=== PATIENT | female | born 1945 | race Caucasian/White ===

== ENCOUNTER 2021-08-29 16:08 | Inpatient (IN) | payer MEDICARE ==
[2021-08-29] VITALS (9 sets, daily range): BP systolic 102–117; BP diastolic 57–75; PULSE 69–101; TEMP 97–98.2
[~2021-08-29] VITALS: Ht 160 cm; Wt 114.1 kg
[~2021-08-29 16:08] MED LIST: CARDIZEM 30MG T30 MG PO; CARDIZEM 60MG T60 MG PO; CYCLOBENZAPRINE10 MG PO; LANOXIN 0.25M0.25 MG PO; LASIX 40MG TABL40 MG PO; LISINOPRIL10 MG PO; LOFIBRA160 MG PO; METOPROLOL SUCC25 MG PO; MICRO-K 10 EXT10 MEQ PO; PRILOTC PO; PROVENTIL0.09 MG/A1 IH; TRICOR145 MG PO; ULTRAM50 MG PO; WARFARIN SOD5 MG PO; ZOCOR 40MG40 MG PO; ZOCOR40 MG PO
[2021-08-29] MEDS ORDERED: LOPRESSOR 225 MG/TAB PO (17:34)
[2021-08-29] MEDS ORDERED: GLUCOPHAGE500 MG/TAB PO (17:34)
[2021-08-29] MEDS ORDERED: XARELTO20 MG PO (17:36)
[2021-08-29] MEDS ORDERED: VITAMIN B12 681 TAB PO (17:36)
--- NOTE | 2021-08-29 19:14 | NUR ---
Care of pt assumed @ 1820. Pt waiting for surgery. She has been up and down off commode with assist since I assume care. Pt very uncomfortable and reports a sore bottom. She has 1 medium BM. She also reports nausea from not eating. Pt encouraged and provided support as needed. Call light in reach.
[2021-08-29] MEDS ORDERED: PYRIDIUM 100MG100 MG PO (19:35)
[2021-08-29] MEDS ORDERED: NORCO 325 MG-51 TAB PO (19:35)
[2021-08-30] VITALS (9 sets, daily range): BP systolic 101–123; BP diastolic 52–74; PULSE 48–120; TEMP 97.4–98.4
--- NOTE | 2021-08-30 03:07 | NUR ---
PATIENT UP TO ROOM 349 AT 2100. ORIENTED BUT DROWSY. STARTED ON 6 L O2 VIA OXYMASK BUT HAS SINCE BEEN WEANED DOWN TO 3 L. GOT UP TO BEDSIDE COMMODE WITH STANDBY ASSIST AND HAD RED TINGED URINE. C/O MODERATE PAIN TO ABD AND SCHEDULED TYLENOL GIVEN. C/O NAUSEA AND PRN ZOFRAN GIVEN. X3 ULCERS NOTED IN ABD SKIN FOLDS ON THE R SIDE AND ABD PAD PLACED BETWEEN FOLDS.
--- NOTE | 2021-08-30 09:31 | NUR ---
NOTIFIED GREGORY WILDE FOR UROLOGY OF PT DESATURATION ON RA. NOTIFIED ASHUTOSH WILDE OF CONSULT NEW ORDERS RECIEVED.
--- NOTE | 2021-08-30 09:34 | NUR ---
HOSPITALIST CONSULTED FOR INABLITY TO MAINTAIN O2 SATS. NOTIFIED ASHUTOSH WILDE.
[2021-08-30 10:37] LABS: HEMOGLOBIN 11.3 g/dl (12.5-16.0); MEAN CELL VOLUME 96 fl (80.0-100.0); MEAN CORPUSCULAR HEMOGLOBIN 30 pg (27-31); MEAN CORPUSCULAR HGB CONC 31 g/dl (33.0-37.0); MEAN PLATELET VOLUME 9.3 fl (7.4-10.4); PLATELET COUNT 308 K/mm3 (130-400); REDCELL DISTRIBUTION WIDTH-CV 14.6 % (11.5-14.5)
--- NOTE | 2021-08-30 10:42 | NUR ---
Initial visit; Patient thanked Heavy Equipment Supervisor for looking in on her, visiting and offering God's blessings.
[2021-08-30 10:52] LABS: ALANINE AMINOTRANSFERASE 7 U/L (0-55); ALBUMIN 3.1 gm/dL (3.4-4.8); ALKALINE PHOSPHATASE 106 U/L (40-150); ANION GAP 11 mmol/L (7-16); AST,SGOT 15 U/L (5-34); BILIRUBIN,TOTAL 0.5 mg/dL (0.2-1.2); BLOOD UREA NITROGEN 29 mg/dL (10-20); CALCIUM 8.6 mg/dL (8.4-10.2); CARBON DIOXIDE 28 mmol/L (23-31); CHLORIDE 102 mmol/L (98-107); CREATININE, serum 1.52 mg/dL (0.57-1.11); GLUCOSE 159 mg/dL (70-99); POTASSIUM 5.4 mmol/L (3.5-4.5); SODIUM 141 mmol/L (136-145); TOTAL PROTEIN 6.6 gm/dL (6.2-8.1)
[2021-08-30 10:58] LABS: TROPONIN-I < 0.010 ng/mL (0.00-0.033)
--- NOTE | 2021-08-30 11:01 | NUR ---
UPDATED ASHUTOSH WILDE ON PT'S LAB RESULTS.
[2021-08-30 11:08] LABS: HEMATOCRIT 36.3 % (37.0-47.0)
[2021-08-30 11:25] LABS: BAND 8 % (0-10); LYMPHOCYTE 2 % (20.0-51.0); NEUTROPHILS 85 % (42.0-75.2); PLATELET ESTIMATE NORMAL (NORMAL)
[2021-08-30 13:49] LABS: MUCOUS Present (NOT PRESENT); PH 5 (5-8); URINE APPEARANCE Cloudy (CLEAR/HAZY); URINE BACTERIA None Seen /hpf (NONE SEEN); URINE BILIRUBIN Negative (NEGATIVE); URINE BLOOD 3+ (NEGATIVE); URINE COLOR Yellow (YELLOW); URINE GLUCOSE Negative (NEGATIVE); URINE KETONE Negative (NEGATIVE); URINE LEUKOCYTE ESTERASE Trace (NEGATIVE); URINE NITRATE Negative (NEGATIVE); URINE PROTEIN(semi-quant) 1+ (NEGATIVE); URINE RBC >50 /hpf (0-2); URINE UROBILINOGEN Negative (NEGATIVE)
[2021-08-30 14:27] LABS: COLLECTION METHOD CLEAN CATCH
--- NOTE | 2021-08-30 14:46 | NUR ---
grounds worker met with patient to complete intake. Patient lives at home alone in [place], but has been receiving home health services [facility] for PT and OT. Patient reports to being mostly independent but does get some help from home health. Patient utilizes a walker to assist with mobility. No oxygen needs at home, however since admit she has needed oxygen, currently on 5L. When not on oxygen, she destat's into the 60's.PCP is Dr. Stevens and she utilizes [facility] for medications. Patient states she does have a DPOA-HC established and that her PCP's office should have a copy. Phone call made to Dr. Stevens' office and copy of the patient's DPOA-HC requested to be faxed to the surgial unit. Fax number provided to medical records at . Discharge plan: Home pending PT/OT rec's; will most likely need oxygen established
--- NOTE | 2021-08-30 15:43 | NUR ---
MED LIST OBTAINED FROM [facility]. FORWARDED TO ASHUTOSH WILDE.
[2021-08-30] MEDS ORDERED: LIPITOR 80MG80 MG PO (15:45)
[2021-08-30] MEDS ORDERED: DIGITEK0.125 MG PO (15:47)
[2021-08-30] MEDS ORDERED: FLOVENT 110MCG7.9 GM IH (15:48)
[2021-08-30] MEDS ORDERED: LASIX 40MG TABL40 MG PO (15:49)
[2021-08-30] MEDS ORDERED: COZAAR 50MG50 MG/TAB PO (15:50)
[2021-08-30] MEDS ORDERED: NYAMYC100000 U/G TP (15:51)
[2021-08-30] MEDS ORDERED: VITAMIN D31000 I1 PO (15:53)
--- NOTE | 2021-08-30 16:50 | NUR ---
DR. ZHOU IN TO SEE PATIENT THIS PM.
--- NOTE | 2021-08-30 19:52 | NUR ---
Pt very uncooperative and sleepy. Pt encouraged to leave the mask on for a couple minutes to get the medicine. Not sure if pt was understanding. She would continuously moan but not speak.
--- NOTE | 2021-08-30 20:30 | NUR ---
PATIENT IS RESTING IN BED.PATIENT IS ON SUPPLEMENTAL OXYGEN 4L.PATIENT REPORTS NAUSEA MEDICATION ADMINISTERED PER EMAR.PATIENT DENIES PAIN.PATIENT IS A ONE ASSIST TO THE BEDSIDE COMMODE.SAFETY MEASURES IN PLACE.NO OTHER NEEDS AT THIS TIME.
[2021-08-31] VITALS (9 sets, daily range): BP systolic 89–135; BP diastolic 42–80; PULSE 78–99; TEMP 97.3–97.9
--- NOTE | 2021-08-31 05:47 | NUR ---
PATIENT SLEPT FOR THE MOST PART OF THE NIGHT.PATIENT DENIES PAIN.PATIENT TAKES OFF THE OXYGEN MASK ON AND OFF WHEN SLEEPING.OXYGEN SATS ABOVE 90S.SAFETY MEASURES IN PLACE.NO OTHER NEEDS AT THIS TIME.
--- NOTE | 2021-08-31 07:00 | NUR ---
Report received from HUNTER Franco. Pt in bed resting, 02 found off and pt states she "just had some water". Replaced and will continue ot monitor.
[2021-08-31 09:18] LABS: BASO % 0.2 % (0.0-2.0); GRAN # 10.5 K/mm3 (1.4-6.5); GRAN % 84.2 % (42.2-75.2); HEMOGLOBIN 10.9 g/dl (12.5-16.0); LYMPH # 1.1 K/mm3 (1.2-3.4); MEAN CELL VOLUME 98 fl (80.0-100.0); MEAN CORPUSCULAR HEMOGLOBIN 29 pg (27-31); MEAN CORPUSCULAR HGB CONC 30 g/dl (33.0-37.0); MEAN PLATELET VOLUME 9.3 fl (7.4-10.4); MONO # 0.7 K/mm3 (0.1-0.6); MONO % 5.7 % (1.7-9.3); PLATELET COUNT 289 K/mm3 (130-400); RED BLOOD COUNT 3.71 M/mm3 (4.10-5.30); REDCELL DISTRIBUTION WIDTH-CV 14.6 % (11.5-14.5)
[2021-08-31 09:21] LABS: HEMATOCRIT 36.4 % (37.0-47.0)
--- NOTE | 2021-08-31 09:25 | NUR ---
Follow-up visit; Patient is doing better she thinks and thanked Glass Blowing Instructor for looking in on her and offering God's blessings.
--- NOTE | 2021-08-31 09:30 | NUR ---
Assessment charted. Pt is alert and partially oriented to date and self but thought she was [place]. Pt has pannus that has wounds in folds on R side. placed inter dry in folds. Also found large open are on labia that pt states makes it hurt when seh urinates. tried to bladder scan and unable to get any urine. Pt has 02 at 5L NC. Legs are swollen, per pt this is standard.
[2021-08-31 09:39] LABS: CALCIUM 8.2 mg/dL (8.4-10.2); CREATININE, serum 2.15 mg/dL (0.57-1.11); POTASSIUM 5.2 mmol/L (3.5-4.5)
[2021-08-31 11:51] LABS: MUCOUS Present (NOT PRESENT); PH 5 (5-8); URINE APPEARANCE Hazy (CLEAR/HAZY); URINE BACTERIA None Seen /hpf (NONE SEEN); URINE BILIRUBIN Negative (NEGATIVE); URINE BLOOD 3+ (NEGATIVE); URINE COLOR Yellow (YELLOW); URINE GLUCOSE Negative (NEGATIVE); URINE KETONE Negative (NEGATIVE); URINE LEUKOCYTE ESTERASE Negative (NEGATIVE); URINE NITRATE Negative (NEGATIVE); URINE PROTEIN(semi-quant) Negative (NEGATIVE); URINE RBC >50 /hpf (0-2); URINE UROBILINOGEN Negative (NEGATIVE)
[2021-08-31 12:50] LABS: COLLECTION METHOD CLEAN CATCH
--- NOTE | 2021-08-31 14:15 | NUR ---
Palliative care nurse met with pt at bedside. Pt seems to be clear in what she reports but when questions are asked in different ways, the answers are often different. Pt's melissa has been setting up her meds this last week as pt has not been taking her meds independently--and still has not responded to phone reminders to take her meds. 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 These still exist. Melissa Cortes reports that her confusion has increased over the last two months, she spends a lot of time talking about life in 1969-. Shital helps with housecleaning, picking up groceries, setting up meds, has arranged for her to have shower help 3x/wk, and calls her every evening to make sure she is ok. She and melissa Chaudhary, are looking into assisted living in [place]. I encouraged her to talk with Lorenza CAMPO about options that might be available to them and Shital seemed very pleased to be able to have that assistance if possible. During our conversation, pt was asked what her wishes would be if her heart were to stop or she would stop breathing. After much thought, she stated, "I am almost 76 years old--if it is my time, let me peacefully". Elba WILDE was advised and order was entered for DNR. I advised Shital of this during our call.
[2021-08-31 14:52] LABS: CALCIUM 8.5 mg/dL (8.4-10.2); CREATININE, serum 2.36 mg/dL (0.57-1.11); POTASSIUM 5.2 mmol/L (3.5-4.5)
--- NOTE | 2021-08-31 15:14 | NUR ---
[facility] was contacted by patient's niece, Shital to discuss discharge planning. Shital is in agreement that patient would benefit from SNF and would like referrals sent to local SNFs. JAHAIRA faxed referrals to [facility] and [facility]. Shital advised they are looking into [facility] for patient.
--- NOTE | 2021-08-31 16:11 | NUR ---
Niece here to visit patient and she is taking patients valuables home wiht her to pay patient's bills per patient's request.
--- NOTE | 2021-08-31 18:25 | NUR ---
Pt has rested off and on this afternoon. Resting in bed, sosa drainin clear yellow urine. Denies needs, PRN pain meds given per request. Pt on 6L O2 now. Will give report to nightshift nurse who will resume care.
--- NOTE | 2021-08-31 19:39 | NUR ---
Pt aggressive and swinging her arms stating "leave me alone." I encouraged pt to take tx, I explained that this was medicine ordered by her Dr and that it would help her. I asked if she would please just let me put the mask on her for 5 minutes and then I would leave her alone as requested. I attempted to place mask since she would not answer me and she proceeded to swing her arms even harder than before and yelled louder, "LEAVE ME ALONE." Med scanned because med was started but pt would not allow me to leave tx on her face. Completion of tx REFUSED by pt at this time. RN notified.
[2021-09-01] VITALS (8 sets, daily range): BP systolic 100–146; BP diastolic 50–79; PULSE 88–110; TEMP 97.4–98.8
--- NOTE | 2021-09-01 05:49 | NUR ---
pt on 6L O2 per mask, c/o pain x2, oxycodone given. turned q2, sosa patent and secure with bloody urine output. confused @times, unable to complete sentences or just mumbles, then other times speaks clearly. refused RT tx @HS then requested one early this am, RT will do @scheduled time of 0700. fluid restriction enfored. remains in afib, HR up to 120-130's @times, 80s-90s now.
[2021-09-01 06:34] LABS: BASO % 0.1 % (0.0-2.0); EOS % 0.1 % (0.0-4.0); GRAN # 12.5 K/mm3 (1.4-6.5); GRAN % 86.5 % (42.2-75.2); HEMATOCRIT 37.8 % (37.0-47.0); LYMPH # 0.8 K/mm3 (1.2-3.4); LYMPH % 5.3 % (20.0-51.0); MEAN CELL VOLUME 102 fl (80.0-100.0); MEAN CORPUSCULAR HEMOGLOBIN 30 pg (27-31); MEAN CORPUSCULAR HGB CONC 29 g/dl (33.0-37.0); MEAN PLATELET VOLUME 9.9 fl (7.4-10.4); MONO % 6.7 % (1.7-9.3); PLATELET COUNT 290 K/mm3 (130-400); REDCELL DISTRIBUTION WIDTH-CV 14.5 % (11.5-14.5)
[2021-09-01 06:47] LABS: CALCIUM 8.1 mg/dL (8.4-10.2); CREATININE, serum 2.4 mg/dL (0.57-1.11); POTASSIUM 5.7 mmol/L (3.5-4.5)
[2021-09-01 09:33] LABS: ARTERIAL BLD GAS O2 SATURATION 96.4 % (92-100); ARTERIAL BLD GAS TCO2 CT 39.6; ARTERIAL BLOOD GAS BASE EXCESS 4.7 (-2-2); ARTERIAL BLOOD GAS HCO3 36.4 meq/L (22-26); ARTERIAL BLOOD GAS PO2 86.3 mmHg (80-100)
[2021-09-01 09:35] LABS: ARTERIAL BLOOD GAS PCO2 103.3 mmHg (35-45); ARTERIAL BLOOD GAS pH 7.17 (7.35-7.45)
[2021-09-01 12:20] LABS: ARTERIAL BLD GAS O2 SATURATION 98.2 % (92-100); ARTERIAL BLD GAS TCO2 CT 39.1; ARTERIAL BLOOD GAS BASE EXCESS 5.9 (-2-2); ARTERIAL BLOOD GAS HCO3 36.3 meq/L (22-26); ARTERIAL BLOOD GAS PCO2 90.1 mmHg (35-45); ARTERIAL BLOOD GAS PO2 107.9 mmHg (80-100); ARTERIAL BLOOD GAS pH 7.22 (7.35-7.45)
--- NOTE | 2021-09-01 15:28 | NUR ---
1459- ASSESSEMENT COMPLETED. PT IS LETHARGIC, WILL RESPOND TO HER NAME ET FOLLOW VERBAL COMMANDS BUT WILL NOT SPEAK WORDS, JUST GRUNTS ET MOANS. PT'S RIGHT EYE APPEARS TO BE DROOPING, PULPILS PERRLA ET HAND APPLICATION SUPPORT ANALYST EQUAL BUT WEAK. PT MOVES BILATERAL LEGS ON BED. GROSS HEMATURIA NOTED IN PT'S PANDA BAG, BUT APPEARS TO CONTINUE TO DRAIN. PT'S GRUNTS ET BREATHING APPEARS UNLABORED ET AT A NORMAL RATE. OXYGEN ON @ 6L NC. OXYGEN SATS ARE 92%. DR. RABAGO NOTIFIED OF PT CONDITION. 1245- DR. URIOSTEGUI NOTIFIED OF HEMATURIA. ORDERS TO CONTIUE TO HOLD XARELTO. 1000- PT BACK TO ROOM FROM CT. PT YELLED ET BECAME VERY AGITATED WHEN MOVING FROM THE BED TO CT CART. 4 ASSIST USED TO TRANSFER PT WITH SLIDE BOARD.
--- NOTE | 2021-09-01 16:17 | NUR ---
1030- RT REPORTS CRITICAL HIGH CO2. DR. RABAGO NOTIFIED. PT PLACED ON BIPAP @ THIS TIME. PT CRIES AFTER RETURNING FROM CT, STATES THAT SHE'S A BIG BABY ET THAT SHE'S SORRY. PT REASSURED. PT'S SPEECH IS SOMEWHAT GARBLED ET SLURRED @ TIMES, STATES THAT SHE IS HAVING PAIN IN HER BACK WHEN ASKED. NEW ORDER RECEIVED FOR LIDOCAINE PATCH. PATCH IS PLACED ON PT'S LOWER BACK. PT IS REPSOTIONED Q 2HRS, IS ON HER LEFT SIDE @ THIS TIME. 1230- PT IS CALM @ THIS TIME BUT STATES THAT SHE WANTS TO TAKE BIPAP MASK OFF. EDUCATED PT ON USE ET IMPORTANCE OF LEAVING BIPAP ON, PT'S RECALL IS LIMITED. PT STATES THAT HER BACK IS STILL HURTING ET GROANS. PT IS GIVEN BED BATH ET DOES NOT TOLERATE REPOSITIONING WELL, YELLS WITH MOVEMENT, LINENS CHANGED. PT STATES THAT SHE WOULD LIKE A DRINK, IS GIVEN ICE WATER THROUGH A STRAW. HOB ELEVATED 45 DEGREES. PT APPEARS TO SWALLOW EASILY. DR. RABAGO NOTIFIED OF PT'S IMPROVEMENT, OKAYED TO GIVE ORAL MORNING MEDS ET PAIN MEDICATION. PT SWALLOWS PILLS EASILY BUT APPEARS TO GAG BRIEFLY AFTERWARDS, STATES THAT SHE CAN USUALLY TAKE MULTIPLE PILLS @ SAME TIME WITHOUT PROBLEMS. BIPAP MASK PLACED BACK ON PT ET IS ALLOWED TO REST @ THIS TIME.
--- NOTE | 2021-09-01 16:40 | NUR ---
PT APPEARS TO BE SLEEPING, AWAKENS EASILY TO NAME. BIPAP IN PLACE. PT CONTINUES TO BE DROWSY AFTER BEING AWAKENED, ATTEMPTS TO DRINK WATER THROUGH STRAW BUT CANNOT. PT'S MOUTH ET LIPS APPEAR VERY DRY, ORAL CARE COMPLETED. PT IS REPOSITIONED ONTO LEFT SIDE FROM RIGHT SIDE WITH 2 ASSIST. PT MOANS ET YELLS OUT WITH REPOSITIONING. PT WILL NOT TALK BUT ANSWERS YES/NO QUESTIONS BY NODDING HER HEAD. CALL LIGHT WITHIN REACH. BED ALARM ON.
[2021-09-01 17:18] LABS: ARTERIAL BLD GAS O2 SATURATION 97.6 % (92-100); ARTERIAL BLD GAS TCO2 CT 37.7; ARTERIAL BLOOD GAS BASE EXCESS 4.9 (-2-2); ARTERIAL BLOOD GAS PCO2 86.4 mmHg (35-45); ARTERIAL BLOOD GAS PO2 98.6 mmHg (80-100); ARTERIAL BLOOD GAS pH 7.23 (7.35-7.45)
--- NOTE | 2021-09-01 17:34 | NUR ---
PT CONTINUES TO BE DROWSY, UNABLE TO SUCTION STRAW TO TAKE A DRINK OF WATER ET REFUSES TO TAKE DRINK FROM THE SIDE OF THE GLASS. TYLENOL PO WASTED ET NOT GIVEN R/T PT'S DIFFICULTY IN DRINKING. PT'S SPEECH IS SLURRED. URINE IN PANDA BAG IS DARK SHINE WITH SMALL CLOTS SEEN, CONTINUES TO DRAIN. BIPAP IN PLACE.
--- NOTE | 2021-09-01 17:40 | NUR ---
PT'S BIPAP DECREASED TO 40% FIO2 PER RT.
--- NOTE | 2021-09-01 19:02 | NUR ---
BIPAP SETTINGS CHANGED ORDERED AT THIS TIME, TOLERATING WELL. TX GIVEN INLINE WITH BIPAP.
[2021-09-01 21:13] LABS: ARTERIAL BLD GAS O2 SATURATION 95.6 % (92-100); ARTERIAL BLD GAS TCO2 CT 34.7; ARTERIAL BLOOD GAS BASE EXCESS 3.8 (-2-2); ARTERIAL BLOOD GAS HCO3 32.5 meq/L (22-26); ARTERIAL BLOOD GAS PO2 83.2 mmHg (80-100); ARTERIAL BLOOD GAS pH 7.27 (7.35-7.45)
[2021-09-01 21:16] LABS: ARTERIAL BLOOD GAS PCO2 72.9 mmHg (35-45)
[2021-09-02] VITALS (7 sets, daily range): BP systolic 98–149; BP diastolic 55–85; PULSE 86–107; TEMP 97.6–98.8
[2021-09-02 05:45] LABS: ARTERIAL BLD GAS O2 SATURATION 97.4 % (92-100); ARTERIAL BLD GAS TCO2 CT 34.8; ARTERIAL BLOOD GAS HCO3 32.8 meq/L (22-26); ARTERIAL BLOOD GAS PO2 98.5 mmHg (80-100); ARTERIAL BLOOD GAS pH 7.32 (7.35-7.45)
[2021-09-02 05:47] LABS: ARTERIAL BLOOD GAS PCO2 65.4 mmHg (35-45)
[2021-09-02 07:07] LABS: HEMOGLOBIN 10.7 g/dl (12.5-16.0); MEAN CELL VOLUME 99 fl (80.0-100.0); MEAN CORPUSCULAR HEMOGLOBIN 30 pg (27-31); MEAN CORPUSCULAR HGB CONC 30 g/dl (33.0-37.0); MEAN PLATELET VOLUME 10.1 fl (7.4-10.4); PLATELET COUNT 233 K/mm3 (130-400); RED BLOOD COUNT 3.58 M/mm3 (4.10-5.30); REDCELL DISTRIBUTION WIDTH-CV 14.3 % (11.5-14.5)
--- NOTE | 2021-09-02 07:09 | NUR ---
Kpad started for c/o neck discomfort, Kept bipap on all noc, am gas much improved. oxycodone given for pain x2. sosa with 650cc out, remains bloody and hazy.
[2021-09-02 07:22] LABS: HEMATOCRIT 35.6 % (37.0-47.0)
[2021-09-02 07:31] LABS: ALBUMIN 3.2 gm/dL (3.4-4.8); ALKALINE PHOSPHATASE 85 U/L (40-150); AST,SGOT 13 U/L (5-34); BILIRUBIN,TOTAL 0.6 mg/dL (0.2-1.2); BLOOD UREA NITROGEN 50 mg/dL (10-20); C-REACTIVE PROTEIN 2.72 mg/dL (0.00-0.50); CALCIUM 8.8 mg/dL (8.4-10.2); CARBON DIOXIDE 33 mmol/L (23-31); CHLORIDE 99 mmol/L (98-107); CREATININE, serum 2.04 mg/dL (0.57-1.11); GLUCOSE 144 mg/dL (70-99); SODIUM 141 mmol/L (136-145); TOTAL PROTEIN 6.3 gm/dL (6.2-8.1)
[2021-09-02 07:35] LABS: ALANINE AMINOTRANSFERASE < 6 U/L (0-55); POTASSIUM 5.9 mmol/L (3.5-4.5)
[2021-09-02 07:37] LABS: ANION GAP 9 mmol/L (7-16)
[2021-09-02 08:00] LABS: BAND 1 % (0-10); LYMPHOCYTE 7 % (20.0-51.0); NEUTROPHILS 90 % (42.0-75.2)
[2021-09-02 08:01] LABS: HYPOCHROMIA 3+; PLATELET ESTIMATE NORMAL (NORMAL)
--- NOTE | 2021-09-02 13:03 | NUR ---
DR. RABAGO IN ROOM TALKING TO FAMILY.
--- NOTE | 2021-09-02 15:30 | NUR ---
PT APPEARS TO BE YELLING UNDER BIPAP MASK. MASK IS REMOVED ET PT STATES THAT SHE NEEDS TO HAVE A BM. EXPLAINED TO PT THAT USING BEDPAN WOULD BE BEST R/T PT'S CONDITION ET LACK OF ACTIVITIES THE LAST FEW DAYS. PT IS VERY WEAK, CANNOT LIFT HER LEGS ET CAN ONLY HOLD HER ARMS UP FOR A LIMITED AMOUNT OF TIME. PT WAS UNABLE TO FEED SELF @ LUNCH ET REQUIRED ASSISTANCE. PT SHAKES HER HEAD NO ET STATES THAT IS UNABLE TO USE BED NGUYEN. SITE SURVEYOR GERALD ENTERS ROOM ET TALKS TO PT, EXPLAINS THAT IT IS UNSAFE FOR PT ET STAFF FOR PT TO LEAVE BED @ THIS TIME. PT IS ALLOWED CHANCE TO LIFT HER LEGS OUT OF BED ET IS UNABLE TO DO SO. PT ASKS "WHAT HAPPENED TO ME", ATTEMPTS MADE TO EXPLAIN SITUATION TO PT, RECALL IS LIMITED. PT EVENTUALLY AGREES TO TRY TO USE BEDPAN, IS REPOSITIONED ET TURNED WITH 3 ASSIST. BIPAP PLACED BACK ONTO PT. PT YELLS ET CRIES WHILE BEING REPOSITIONED. PT IS UNABLE TO HAVE A BM ON BEDPAN, GROANS WHEN MOVED BUT BECOMES QUIET AFTER. PT ALLOWED TO REST. BED ALARM ON. CALL LIGHT WITHIN REACH.
--- NOTE | 2021-09-02 15:36 | NUR ---
Clinical updates faxed to [facility] and [facility]
[2021-09-02 17:00] LABS: CALCIUM 9.1 mg/dL (8.4-10.2); CREATININE, serum 2.08 mg/dL (0.57-1.11)
[2021-09-02 17:02] LABS: POTASSIUM 6.3 mmol/L (3.5-4.5)
--- NOTE | 2021-09-02 21:15 | NUR ---
2nd IV site needed for mult. meds due, lasix drip and zosyn infusing per piv in RFA, new site placed in LFA, 2nd bicarb given and a pt requested dose of ativan prior to going on the bipap, meds given and pt placed on bipap, resting with eyes closed @2145 sosa with 700 cc pink urine out. 2 units of SS given for BGM
[2021-09-02 23:07] LABS: CALCIUM 8.9 mg/dL (8.4-10.2); CREATININE, serum 2.06 mg/dL (0.57-1.11); POTASSIUM 4.9 mmol/L (3.5-4.5)
[2021-09-03] VITALS: BP 124/60; PULSE 84; TEMP 98
--- NOTE | 2021-09-03 01:30 | NUR ---
PT taken off bipap and placed on 6L per NC for po meds, including oxycodone for pain. RN in room with pt for approx 30mins, for cares, placed back on bipap @0200. pt resting with eyes closed.
[2021-09-03 02:24] LABS: CALCIUM 9.3 mg/dL (8.4-10.2); CREATININE, serum 1.96 mg/dL (0.57-1.11); POTASSIUM 4.9 mmol/L (3.5-4.5)
--- NOTE | 2021-09-03 02:30 | NUR ---
pt pulled apart bipap face mask, refusing to have it put back on, c/o feeling the need to urinate, pt aware she has catheter, but feels the urge, sosa with good output @this time. pt repositioned, given several drinks of water. 2nd oxycodone and B&O suppository given for comfort @0245 placed back on bipap @0300, resting with eyes closed.
[2021-09-03 04:28] LABS: ARTERIAL BLD GAS O2 SATURATION 96.8 % (92-100); ARTERIAL BLD GAS TCO2 CT 32.8; ARTERIAL BLOOD GAS BASE EXCESS 5.5 (-2-2); ARTERIAL BLOOD GAS HCO3 31.2 meq/L (22-26); ARTERIAL BLOOD GAS PCO2 50.7 mmHg (35-45); ARTERIAL BLOOD GAS PO2 88.1 mmHg (80-100); ARTERIAL BLOOD GAS pH 7.41 (7.35-7.45)
[2021-09-03 05:10] VITALS: BP 125/75; PULSE 82; TEMP 97.5
--- NOTE | 2021-09-03 06:08 | NUR ---
pt kept bipap on most of shift, she has a lot of anxiety, but with reassurance and meds she is agreeable to wearing it. has had 3250cc pinkish urine out this shift, still has some clots of blood present. Lasix infusing per piv at 5.5ml/hr, significant decrease in BLE edema this shift.
[2021-09-03 06:26] LABS: MEAN CORPUSCULAR HEMOGLOBIN 29 pg (27-31); MEAN CORPUSCULAR HGB CONC 31 g/dl (33.0-37.0); MEAN PLATELET VOLUME 10.2 fl (7.4-10.4); PLATELET COUNT 253 K/mm3 (130-400); RED BLOOD COUNT 3.81 M/mm3 (4.10-5.30)
[2021-09-03 06:40] LABS: HEMATOCRIT 35.5 % (37.0-47.0); MEAN CELL VOLUME 93 fl (80.0-100.0)
[2021-09-03 06:45] LABS: CREATININE, serum 1.82 mg/dL (0.57-1.11); MAGNESIUM 2.1 mg/dL (1.6-2.6); POTASSIUM 4.8 mmol/L (3.5-4.5)
--- NOTE | 2021-09-03 07:07 | NUR ---
bedside shift report received from HUNTER Bhatt
[2021-09-03 07:22] LABS: BAND 5 % (0-10); LYMPHOCYTE 4 % (20.0-51.0); NEUTROPHILS 90 % (42.0-75.2); PLATELET ESTIMATE NORMAL (NORMAL)
[2021-09-03 07:58] VITALS: BP 136/68; PULSE 85; TEMP 98.2
--- NOTE | 2021-09-03 08:30 | NUR ---
appears to be dozing wiht BIPAP on, BIPAP removed and O2 3L/NC, O2 sat 93%, full assessment completed, see interventions for further info, lifted panus and has large amount caked desenex powder in creases, will return and clean and remove old desenex after breakfast, repositioned up in bed for breakfast, is alert and oriented and asking if she will please be able to get out of bed today, when rolled to side she does call out in pain in her back
--- NOTE | 2021-09-03 09:34 | NUR ---
physical and occupational therapy were in and assistd her up and into chair, she is alert oriented to self but not time or place, she thinks she is in [place], therapists reported when Dr Meneses in and asking questions she was not responding appropriately, in the chair and O2 sat 92% on 3L/NC, urine is light keo with sediment in tubing, chair alarm on, denies needs
--- NOTE | 2021-09-03 09:55 | NUR ---
Dr Talamantes and care team in to see patient
--- NOTE | 2021-09-03 10:32 | NUR ---
remains up in chair, is crying stating she has to "pee", readjusted catheter and is draining clear light keo urine, O2 sat is now 96% and she is oriented to place,
--- NOTE | 2021-09-03 10:45 | NUR ---
niece in to visit, she visited also with Adriana RN and Rosa, social media community manager prior to seeing patient
--- NOTE | 2021-09-03 11:10 | NUR ---
remains resting in chair and dozing at intervals, O2 sat 92% while dozing,
[2021-09-03 11:43] VITALS: BP 136/71; PULSE 85; TEMP 97.8
--- NOTE | 2021-09-03 11:50 | NUR ---
Met with Shital muse, outside room during cardiology rounding. Shital confirmed that a DPOA has not been updated but she and her sister and the primary family members that help the patient. She feels DNR is appropriate for the patient and confirms that she has had discussions about the type of care the patient would want to receive. JAHAIRA Mendez, was also present and we discussed goals of care with patient's neice; family would like the patient to go to rehab/SNF wherever she is accepted but would prefer [place] as it is closer to family. She and her sister are working on getting the patient in an assisted living after her discharge from SNF. Shital also confirmed the patient has MCR and Aeturba BALBINA.
--- NOTE | 2021-09-03 12:01 | NUR ---
in chair and appears to be sleeping with mouth open, O2 sa 94%
--- NOTE | 2021-09-03 12:30 | NUR ---
physical therapy was in and assisted getting her back to bed, cleaned pannus with soap and water and dried thoroughly, on right side has 3 1cm slit like areas that are tender and sore, notified ANDRY Arreola and she was in to assess, new order received, reposistioned up in bed and ready for lunch, she is oriented at this time but has periods of confusion
--- NOTE | 2021-09-03 13:10 | NUR ---
sanitation worker cleaning machinery and palliative care RN Adriana met with patient's niece Shital. After speaking with family, Shital states that the family would like to see the patient go skilled before moving her to an AL. Initially, the idea woas for [facility] and then to [facility]. Later in the morning, Shital states that after speaking with her sister, they would like to keep the patient in the [place] area. We also spoke about the need for a DPOA-HC. During interaction, patient appears drowsey and does engage in the conversation much. Agreement made to revisit the DPOA-HC conversation later today when the patient is more alert. Clinical updates faxed to [facility] and [facility]. [facility] is not accepting any new admissions at this time. Magdalena with [facility] is unable to accept the patient at this time. Needs to see the patient become more stable with her lasix. Quique with [facility] reports that they can accept patient with her p.m. Bipap, and once the patient comes off of the IV Lasix and switches to PO, they would have no problem accepting the patient. Informed Quique that i would let the patient's family know.
--- NOTE | 2021-09-03 13:57 | NUR ---
she called nurse to room stating she had to "pee", sosa does not appear to be draining, irrigated with 30ml and 30ml returned and then it startd draining after 1 small old clot/tissue returned, earlier had seen a few of the clots/tissue, pateint stated jayne as sosa was draining, will finish lunch now
--- NOTE | 2021-09-03 14:30 | NUR ---
had lunch and tolerated well, interdry placed on right side of pannus and zinc oxide to "sores", on right side also, will visit for a short time with niece and hen try to nap
[2021-09-03 15:36] VITALS: BP 132/72; PULSE 75; TEMP 97.6
--- NOTE | 2021-09-03 16:14 | NUR ---
in bed and appears to be sleeping, O2 sat whil asleep on O2 a 3L, 93%
[2021-09-03 16:19] LABS: CALCIUM 8.8 mg/dL (8.4-10.2); CREATININE, serum 1.87 mg/dL (0.57-1.11); POTASSIUM 4.3 mmol/L (3.5-4.5)
--- NOTE | 2021-09-03 18:24 | NUR ---
again feeling as if needs to void, irrigated sosa with 20ml and 20ml returned and and few oriana brown clots/tissue, urine then is flowing
--- NOTE | 2021-09-03 19:03 | NUR ---
bedside shift report given to HUNTER Wilkins and HUNTER Gutiérrez
[2021-09-03 20:24] VITALS: BP 122/54; PULSE 90; TEMP 98.1
[2021-09-04 00:06] VITALS: BP 114/54; PULSE 87; TEMP 98.2
--- NOTE | 2021-09-04 03:08 | NUR ---
Report received from HUNTER Isaacs. Patient is here due to an initial ureteroscopy on 08/29. Patient is still here due to an exacerbation of CHF and COPD. Patient is drowsy upon shift change but A&Ox3 when assessed. Full body assessment completed and vital signs WNL. Sosa in place with clear light yellow urine. Patient needed her sosa irrigated once throughout this shift which produced scant clots of tissue. Patient has difficulty standing and ambulating, told staff that she is afraid to ambulate in fear of hurting us. Upon standing with 2x assist patient was able to reposition without difficulty. Oral medications were tolerated. Patient requires a Bipap but refuses to wear it. Staff explained that wearing Bipap will increase oxygenation throughout the night and make her more comfortable. Patient states that she is having back pain, PRN roxycodone was adminstered. Patient denies any other complaints at this time. Call light within reach.
--- NOTE | 2021-09-04 04:11 | NUR ---
Patient complaining of knee pain. PRN roxycodone administered. Patient states that she has to urinate but a sosa catheter is in place. Educated patient on catheter. 1550 urine output was measured via sosa.
[2021-09-04 04:13] VITALS: BP 132/84; PULSE 95; TEMP 97.6
[2021-09-04 05:20] LABS: ARTERIAL BLD GAS O2 SATURATION 95.9 % (92-100); ARTERIAL BLD GAS TCO2 CT 46.3; ARTERIAL BLOOD GAS BASE EXCESS 16.5 (-2-2); ARTERIAL BLOOD GAS HCO3 44.2 meq/L (22-26); ARTERIAL BLOOD GAS PO2 79.7 mmHg (80-100); ARTERIAL BLOOD GAS pH 7.43 (7.35-7.45)
[2021-09-04 05:22] LABS: ARTERIAL BLOOD GAS PCO2 68.9 mmHg (35-45)
[2021-09-04 06:10] LABS: BASO % 0.2 % (0.0-2.0); GRAN # 9.8 K/mm3 (1.4-6.5); GRAN % 87.4 % (42.2-75.2); HEMATOCRIT 38.3 % (37.0-47.0); HEMOGLOBIN 11.7 g/dl (12.5-16.0); LYMPH # 0.5 K/mm3 (1.2-3.4); LYMPH % 4.7 % (20.0-51.0); MEAN CELL VOLUME 95 fl (80.0-100.0); MEAN CORPUSCULAR HEMOGLOBIN 29 pg (27-31); MEAN CORPUSCULAR HGB CONC 31 g/dl (33.0-37.0); MEAN PLATELET VOLUME 9.8 fl (7.4-10.4); MONO # 0.8 K/mm3 (0.1-0.6); MONO % 7.2 % (1.7-9.3); PLATELET COUNT 267 K/mm3 (130-400); RED BLOOD COUNT 4.05 M/mm3 (4.10-5.30); REDCELL DISTRIBUTION WIDTH-CV 14.2 % (11.5-14.5)
[2021-09-04 06:26] LABS: CALCIUM 9.1 mg/dL (8.4-10.2); CREATININE, serum 1.94 mg/dL (0.57-1.11); POTASSIUM 4.4 mmol/L (3.5-4.5)
[2021-09-04 07:30] VITALS: BP 133/81; PULSE 86; TEMP 97.6
--- NOTE | 2021-09-04 11:02 | NUR ---
Spoke with Quique at [facility]. Informed him i that i hadn't spoken with the patient's family but plan on it today. Clinical updates faxed. Myself and palliative care RN Adriana attempted to meet with patient to complete DPOA-HC. Patient still very drowsey during interaction but is able to verbalize that she would like her nieces Shital Cortes ([phone]) and Meggan Sloanmabeljanet ([phone]) as her agents. Due to weakend status and drowsiness, will attempt on signing at a later time.
--- NOTE | 2021-09-04 11:36 | NUR ---
Pt complains of lower back pain. Lidocaine patch in place. Graves Care completed. Found skin break down on top of pubic area. No drainage, open/red sore. Zinc ointment and powder applied. Nurse Notified. Zinc ointment and powder applied to ulcers under pannus on left side. Pt states she has urge to void. Reminded of catheter in place. Pt remains on 2000mL fluid restriction. 720mL fluid intake. Pt laying in bed resting with call light in reach.
--- NOTE | 2021-09-04 11:54 | NUR ---
AGREE WITH STUDENT'S AM ASSESSMENTS. PT RESTING QUIETLY IN BED. CARDIOLOGY DEBBY LEBRON FOR CARDIOLOGY IN TO SEE PT AT THIS TIME.
[2021-09-04 12:11] VITALS: BP 131/71; PULSE 93; TEMP 98.2
[2021-09-04 15:11] VITALS: BP 122/58; PULSE 83; TEMP 97.6
--- NOTE | 2021-09-04 16:20 | NUR ---
PT C/O PAIN IN CHEST CHECKED WITH TELE AND NO CHANGE FROM BASELINE REPORTED FROM TYRE FINISHER AND EXAMINER. PO PAIN MEDS GIVEN. ON RECHECK PT WAS SLEEPING QUIETLY IN NO APPERARENT STRESS.
[2021-09-04 21:28] VITALS: BP 96/49; PULSE 72; TEMP 97.3
[2021-09-05] VITALS (7 sets, daily range): BP systolic 103–140; BP diastolic 57–85; PULSE 68–86; TEMP 97.3–98.6
--- NOTE | 2021-09-05 00:49 | NUR ---
Report received from HUNTER Vang. Patient is laying in bed, watching television. Evening meal sitting in front of patient, not consumed. Patient states that she is not hungry. This nurse offered other options for her evening meal, all of which she decline. Full body assessment completed and vital signs are WNL. Patient has a sosa catheter in and is producing clear, yellow urine with minimal tissue clots. Patient is not wearing Bipap machine, she refuses due to it being uncomfortable. This nurse explained that wearing this will help increase oxygenation. Patient is able to take PO medications however, she appears to doze off during medication administration. This nurse had to keep waking patient up to take medication, I proceeded to assess the patients orientation. Patient is A&Ox3 but became irritated when answering the orientation questions and states "why do you all keep asking me these dumb questions?". This nurse explained to the patient that it is important to reassess her orientation in order to make sure that there are no changes in her orientation. Patient has no other complaints at this time. Call light within reach.
--- NOTE | 2021-09-05 05:13 | NUR ---
This nurse entered the patients room to get a set of vitals. The patient was laying in bed aying "Cece, Cece, Cece, don't go". This nurse inquired as to who Cece was, the patient stated that this was her sister. This nurse asked if she was dreaming about her or if she had visited her since her admission to the hospital. The patient informed me that her sister was and that sometimes she likes to say her name because it is a unique name. This nurse agreed that the name "Cece" was unique. The patient does not have any complaints at this time. Call light within reach.
[2021-09-05 05:44] LABS: ARTERIAL BLD GAS O2 SATURATION 98.9 % (92-100); ARTERIAL BLD GAS TCO2 CT 41.4; ARTERIAL BLOOD GAS BASE EXCESS 9.9 (-2-2); ARTERIAL BLOOD GAS HCO3 39.3 meq/L (22-26); ARTERIAL BLOOD GAS pH 7.36 (7.35-7.45)
[2021-09-05 05:45] LABS: ARTERIAL BLOOD GAS PCO2 70.6 mmHg (35-45); ARTERIAL BLOOD GAS PO2 141.7 mmHg (80-100)
[2021-09-05 06:22] LABS: BASO % 0.1 % (0.0-2.0); EOS % 0.3 % (0.0-4.0); GRAN # 9.3 K/mm3 (1.4-6.5); GRAN % 82.6 % (42.2-75.2); HEMATOCRIT 40.5 % (37.0-47.0); HEMOGLOBIN 12.3 g/dl (12.5-16.0); LYMPH # 0.9 K/mm3 (1.2-3.4); LYMPH % 8.2 % (20.0-51.0); MEAN CELL VOLUME 97 fl (80.0-100.0); MEAN CORPUSCULAR HEMOGLOBIN 30 pg (27-31); MEAN CORPUSCULAR HGB CONC 30 g/dl (33.0-37.0); MEAN PLATELET VOLUME 10.2 fl (7.4-10.4); MONO # 0.9 K/mm3 (0.1-0.6); MONO % 8.3 % (1.7-9.3); PLATELET COUNT 257 K/mm3 (130-400); RED BLOOD COUNT 4.17 M/mm3 (4.10-5.30); REDCELL DISTRIBUTION WIDTH-CV 14.3 % (11.5-14.5)
[2021-09-05 06:44] LABS: CALCIUM 9.2 mg/dL (8.4-10.2); CREATININE, serum 1.89 mg/dL (0.57-1.11); MAGNESIUM 2.2 mg/dL (1.6-2.6); POTASSIUM 4.6 mmol/L (3.5-4.5)
--- NOTE | 2021-09-05 10:45 | NUR ---
Shift assesment completed. Provided jhon and cath care to pt. pt stated she was "itchy" in her pubis region. Pt has open/red tisha sized sores on top of her pubis area. Zinc ointment and powder applied to pubis and open/red sores in pannus on R side. Nurse notified of new open/red sore tisha sized with blood drainage located on backside of pubis where cath may be rubbing. Zinc ointment and powder applied. Pt urine went from pink to more of a hastings red color but clear. Nurse notified. Bed bath given to pt. Lidocaine patch applied to lower back. No complaints of pain at this time. pt is more alert today. Educated pt on calling nurse when she wants to sleep or feels drowsy as she has to wear bipap per doc orders. Pt now laying in bed with call light in reach.
--- NOTE | 2021-09-05 11:49 | NUR ---
*(LATE ENTRY)* Spoke with patient's niece Shital informing her that the patient has been accepted to [facility] for SNF once she is medically ready. Shital appreciative of this. Let Shital know that HUNTER Wright and i attempted to complete DPOA-HC with patient but was unable to have her sign it due to fatigue. Let Shital know Adriana and I plan on addressing it again at a later time.
--- NOTE | 2021-09-05 16:04 | NUR ---
shop worker met with patient at bedside. Patient's niece Shital present. Patient's mentation has improved and she is more alert today. Patient is able to tell me what a DPOA-HC is and who she would like listed. Patient again states she would like her nieces Shital Cortes and Meggan Oneill listed as her agents. This SW and BAG PRINTER witnessed patient sign form. Copy made and placed in the patient's chart. Original and additional copies placed provided to Shital. Provided the update on the recommendation for the patient to go to [facility]. Educated Shital on the care [facility] provides. Shital's main concern is that her daughter is able to see the patient before she is transfered. Informed Shital of the visitor policy and let her know i would ask but that i couldn't promise anything. Shital verbalizes her understanding. Clinical referral faxed to [facility]
--- NOTE | 2021-09-05 20:30 | NUR ---
Pt. sitting up in bed. Pt. is A&OX3, assessment complete. INT to lt. forearm patent. INT to rt. forearm discontinued d/t leaking. Medicated powder applied to panus folds. Zinc oxide applied to external genitalia. Pt. denies pain or other needs, call light within reach.
[2021-09-06] VITALS (7 sets, daily range): BP systolic 118–150; BP diastolic 62–90; PULSE 65–82; TEMP 97.1–98.1
--- NOTE | 2021-09-06 10:11 | NUR ---
NOTIFIED BY LAB THAT THEY WERE UNSUCCESSFUL IN ATTEMPTS TO DRAW LABS. 1X ATTEMPT MADE BY THIS NURSE, UNABLE TO DRAW BLOOD. BUE ARE BRUISED IN MULTIPLE PLACES.
--- NOTE | 2021-09-06 12:52 | NUR ---
ELI FARRELL RN IN PT'S ROOM TO FOR PICC INSERTION.
--- NOTE | 2021-09-06 13:15 | NUR ---
SW met with patient and patient's niece Shital at bedside. Informed both that the patient has been accepted to [facility] in [place] with a possible transfer tomorrow.
[2021-09-06 13:32] LABS: BASO % 0.1 % (0.0-2.0); EOS # 0.1 K/mm3 (0.0-0.7); EOS % 0.9 % (0.0-4.0); GRAN # 11.3 K/mm3 (1.4-6.5); GRAN % 89.6 % (42.2-75.2); HEMATOCRIT 38.3 % (37.0-47.0); HEMOGLOBIN 12.2 g/dl (12.5-16.0); LYMPH # 0.6 K/mm3 (1.2-3.4); LYMPH % 4.4 % (20.0-51.0); MEAN CELL VOLUME 93 fl (80.0-100.0); MEAN CORPUSCULAR HEMOGLOBIN 30 pg (27-31); MEAN CORPUSCULAR HGB CONC 32 g/dl (33.0-37.0); MEAN PLATELET VOLUME 10.3 fl (7.4-10.4); MONO # 0.6 K/mm3 (0.1-0.6); MONO % 4.5 % (1.7-9.3); PLATELET COUNT 231 K/mm3 (130-400); RED BLOOD COUNT 4.13 M/mm3 (4.10-5.30); REDCELL DISTRIBUTION WIDTH-CV 14.3 % (11.5-14.5)
[2021-09-06 13:53] LABS: CALCIUM 8.5 mg/dL (8.4-10.2); CREATININE, serum 1.44 mg/dL (0.57-1.11); POTASSIUM 4.3 mmol/L (3.5-4.5)
--- NOTE | 2021-09-06 14:17 | NUR ---
PHYSICAL THERAPY IN ROOM WITH PT. PT WALKING WITH WENDY.
--- NOTE | 2021-09-06 15:19 | NUR ---
Permission obtained from house and floor layer tile that the patient's 15 year old niece can come up and see her for 1 hour. Phone call made to Shital that she can bring her daughter up for 1 hour to visit with the patient.
--- NOTE | 2021-09-06 15:29 | NUR ---
PT'S PANNUS ET GROIN CLEANED ET DRIED. DESENEX ET ZINC OXIDE HAS BEEN APPLIED. PT HAS 3 OPEN BEEFY RED ULCERS UNDER HER RIGHT PANNUS ET 2 OPEN ULCERS ON HER LABIA. NEW STATLOCK APPLIED TO LEFT LEG FOR PANDA CATHTETER. URINE CONTINUES TO BE STEPHENS RED.
--- NOTE | 2021-09-06 21:15 | NUR ---
Pt. laying in bed with eyes closed, respirations equal and unlabored. Pt. is A&OX3, assessment complete. PICC to lt. upper arm patent. Pt. denies pain. Cath care and powder applied, zinc oxide applied. Pt. denies further needs, call light within reach.
[2021-09-07 03:38] VITALS: BP 136/75; PULSE 61; TEMP 98.1
[2021-09-07 06:57] LABS: BASO % 0.1 % (0.0-2.0); EOS # 0.2 K/mm3 (0.0-0.7); EOS % 1.6 % (0.0-4.0); GRAN # 8.5 K/mm3 (1.4-6.5); GRAN % 78.8 % (42.2-75.2); HEMOGLOBIN 12.1 g/dl (12.5-16.0); LYMPH # 1.1 K/mm3 (1.2-3.4); LYMPH % 10.1 % (20.0-51.0); MEAN CELL VOLUME 94 fl (80.0-100.0); MEAN CORPUSCULAR HEMOGLOBIN 29 pg (27-31); MEAN CORPUSCULAR HGB CONC 31 g/dl (33.0-37.0); MEAN PLATELET VOLUME 10.9 fl (7.4-10.4); MONO % 8.8 % (1.7-9.3); PLATELET COUNT 225 K/mm3 (130-400); RED BLOOD COUNT 4.15 M/mm3 (4.10-5.30); REDCELL DISTRIBUTION WIDTH-CV 14.4 % (11.5-14.5)
[2021-09-07 07:11] LABS: CALCIUM 8.7 mg/dL (8.4-10.2); CREATININE, serum 1.11 mg/dL (0.57-1.11); POTASSIUM 3.9 mmol/L (3.5-4.5)
[2021-09-07 08:00] VITALS: BP 122/66; PULSE 64; TEMP 94.6
[2021-09-07] MEDS ORDERED: AMOXICILLIN 8751 TAB PO (10:24)
--- NOTE | 2021-09-07 11:15 | NUR ---
PANDA CATHETER BAG CHANGED. CATHETER IS DRAINING DEPENDENTLY BUT BAG HAD SEVERAL SMALL CLOTS.
--- NOTE | 2021-09-07 11:27 | NUR ---
Bart from [facility] arrives to the unit to meet with patient and family. Patient is accepted for admission today at [facility]. EMS contacted and arrangement made for 1729 for belt picker time. [facility] forms completed and signed by physician. Patient and family updated on POc, discharge orders faxed to Bart at [facility]
[2021-09-07 12:00] VITALS: BP 128/36; PULSE 73; TEMP 97.6
--- NOTE | 2021-09-07 13:39 | NUR ---
PT RESTING QUIETLY IN BED WITH TV ON, KAIA @ BEDSIDE, HAS EATEN LUNCH. PT DENIES NEEDS. PANDA CATHETER DRAINING STEPHENS RED. BED ALARM ON. CALL LIGHT WITHIN REACH.
--- NOTE | 2021-09-07 18:00 | NUR ---
PT IS DCED TO [facility], TRANSFERRED BY EMS. PT IS TRANSFERRED TO STRETCHER WITH 4 ASSIST ET SLIDEBOARD, TOLERATES WELL. 1L O2 VIA NC IN PLACE. PT IS A&O X4, PLEASANT, HAS EATEN DINNER. PICC IN PLACE TO LEFT UPPER ARM. PANDA CATHETER DEPENDENTLY DRAINING. URINE IS STEPHENS RED WITH SMALL CLOTS SEEN. PT'S BELONGINGS ARE TAKEN WITH HER. REPORT IS CALLED TO TRANSFERRING FACILITY.
== END 2021-09-07 18:00 | DRG 291 ==
LOC: SDCO 16:08 → SURG 21:00 → SDCO 08-30 13:23 → SURG 08-30 13:26
PROVIDERS: Internal Medicine; Internal Medicine Interventional Cardiology; Internal Medicine Sleep Medicine; Nurse Practitioner; Physician Assistant; Student in an Organized Health Care Education/Training Program; ADMIT Student in an Organized Health Care Education/Training Program
PROC: 5A09457 Assistance with Respiratory Ventilation, 24-96 Consecutive Hours, Continuous Positive Airway Pressure (ICD-10-PCS; 2021-09-01)
PROC: 02HV33Z Insertion of Infusion Device into Superior Vena Cava, Percutaneous Approach (ICD-10-PCS; principal; 2021-09-06)
DX: I11.0 Hypertensive heart disease with heart failure (principal); I50.31 Acute diastolic (congestive) heart failure; J96.21 Acute and chronic respiratory failure with hypoxia; J96.22 Acute and chronic respiratory failure with hypercapnia; J18.9 Pneumonia, unspecified organism; J44.1 Chronic obstructive pulmonary disease with (acute) exacerbation; N17.9 Acute kidney failure, unspecified; E66.2 Morbid (severe) obesity with alveolar hypoventilation; J44.0 Chronic obstructive pulmonary disease with (acute) lower respiratory infection; E87.4 Mixed disorder of acid-base balance; Z68.42 Body mass index [BMI] 45.0-49.9, adult; I48.91 Unspecified atrial fibrillation; K59.09 Other constipation; K21.9 Gastro-esophageal reflux disease without esophagitis; E78.5 Hyperlipidemia, unspecified; E11.9 Type 2 diabetes mellitus without complications; I35.0 Nonrheumatic aortic (valve) stenosis; I27.20 Pulmonary hypertension, unspecified; R31.0 Gross hematuria; E87.5 Hyperkalemia; L30.4 Erythema intertrigo; Z20.822 Contact with and (suspected) exposure to COVID-19; Z79.84 Long term (current) use of oral hypoglycemic drugs
CPT/HCPCS: OP; 99223; 99232-AI; 99233-AI; 99239; A9284; C1751; C1769; C1892; C1894; C2617; J0690; J0696; J1100; J1815; J1885; J1940; J2060; J2405; J2543; J2704; J2920; J3010; J7120; J7512; Q9967

== ENCOUNTER → 2021-09-27 | Outpatient (CLI) | payer MEDICARE, MEDICAID ==
[~2021-09-27] MED LIST changes: +AMOXICILLIN 8751 TAB PO; +COZAAR 50MG50 MG/TAB PO; +DIGITEK0.125 MG PO; +FLOVENT 110MCG7.9 GM IH; +GLUCOPHAGE500 MG/TAB PO; +LIPITOR 80MG80 MG PO; +LOPRESSOR 225 MG/TAB PO; +NORCO 325 MG-51 TAB PO; +NYAMYC100000 U/G TP; +PYRIDIUM 100MG100 MG PO; +VITAMIN B12 681 TAB PO; +VITAMIN D31000 I1 PO; +XARELTO20 MG PO
== END ==
LOC: ZLAB.STJ 16:04
DX: N17.9 Acute kidney failure, unspecified (principal)

== ENCOUNTER → 2021-10-01 | Outpatient (CLI) | payer MEDICARE, MEDICAID ==
[2021-10-01 18:11] LABS: COLLECTION METHOD CLEAN CATCH
[2021-10-01 18:24] LABS: PH 5 (5-8); SQUAMOUS EPITHELIAL 0-2 /hpf (0-10); URINE APPEARANCE Clear (CLEAR/HAZY); URINE BACTERIA None Seen /hpf (NONE SEEN); URINE BILIRUBIN Negative (NEGATIVE); URINE BLOOD 2+ (NEGATIVE); URINE COLOR Straw (YELLOW); URINE GLUCOSE Negative (NEGATIVE); URINE KETONE Negative (NEGATIVE); URINE LEUKOCYTE ESTERASE 2+ (NEGATIVE); URINE NITRATE Negative (NEGATIVE); URINE PROTEIN(semi-quant) Negative (NEGATIVE); URINE UROBILINOGEN Negative (NEGATIVE)
== END ==
LOC: ZLAB.STJ 16:41
PROVIDERS: Internal Medicine
DX: N39.0 Urinary tract infection, site not specified (principal)

== ENCOUNTER 2021-10-12 16:22 | Inpatient (IN) | payer MEDICARE, MEDICAID ==
[~2021-10-12] VITALS: Ht 7.6 cm; Wt 103.1 kg
[2021-10-12] VITALS (71 sets, daily range): BP systolic 106–107; BP diastolic 59–78; PULSE 94–99; TEMP 97.7; O2SAT 84–98
[2021-10-12 16:39] LABS: ARTERIAL BLD GAS O2 SATURATION 97.3 % (92-100); ARTERIAL BLD GAS TCO2 CT 37.3; ARTERIAL BLOOD GAS BASE EXCESS 3.9 (-2-2); ARTERIAL BLOOD GAS HCO3 34.5 meq/L (22-26); ARTERIAL BLOOD GAS PO2 109.9 mmHg (80-100)
[2021-10-12 16:40] LABS: ARTERIAL BLOOD GAS PCO2 92.8 mmHg (35-45); ARTERIAL BLOOD GAS pH 7.19 (7.35-7.45)
[2021-10-12 17:30] LABS: HEMOGLOBIN 11.7 g/dl (12.5-16.0); MEAN CELL VOLUME 96 fl (80.0-100.0); MEAN CORPUSCULAR HEMOGLOBIN 30 pg (27-31); MEAN CORPUSCULAR HGB CONC 31 g/dl (33.0-37.0); MEAN PLATELET VOLUME 9.7 fl (7.4-10.4); PLATELET COUNT 326 K/mm3 (130-400); RED BLOOD COUNT 3.94 M/mm3 (4.10-5.30); REDCELL DISTRIBUTION WIDTH-CV 17.5 % (11.5-14.5)
[2021-10-12 17:37] LABS: INR 1.6 (0.8-3.0)
[2021-10-12 17:45] LABS: ALANINE AMINOTRANSFERASE 6 U/L (0-55); ALBUMIN 3.5 gm/dL (3.4-4.8); ALKALINE PHOSPHATASE 116 U/L (40-150); ANION GAP 13 mmol/L (7-16); AST,SGOT 15 U/L (5-34); BILIRUBIN,TOTAL 0.8 mg/dL (0.2-1.2); BLOOD UREA NITROGEN 17 mg/dL (10-20); C-REACTIVE PROTEIN 2.66 mg/dL (0.00-0.50); CARBON DIOXIDE 28 mmol/L (23-31); CHLORIDE 100 mmol/L (98-107); CREATININE, serum 0.87 mg/dL (0.57-1.11); GLUCOSE 148 mg/dL (70-99); POTASSIUM 4.9 mmol/L (3.5-4.5); SODIUM 141 mmol/L (136-145); TOTAL PROTEIN 7.5 gm/dL (6.2-8.1)
[2021-10-12 17:51] LABS: COLLECTION METHOD IN
[2021-10-12 17:51] LABS: TROPONIN-I < 0.010 ng/mL (0.00-0.033)
[2021-10-12 18:07] LABS: BAND 10 % (0-10); LYMPHOCYTE 3 % (20.0-51.0); NEUTROPHILS 81 % (42.0-75.2); PLATELET ESTIMATE NORMAL (NORMAL)
[2021-10-12 18:08] LABS: ANISOCYTOSIS 1+
[2021-10-12 18:09] LABS: MUCOUS Present (NOT PRESENT); PH 5 (5-8); SQUAMOUS EPITHELIAL 0-2 /hpf (0-10); URINE APPEARANCE Cloudy (CLEAR/HAZY); URINE BACTERIA None Seen /hpf (NONE SEEN); URINE BILIRUBIN Negative (NEGATIVE); URINE BLOOD 3+ (NEGATIVE); URINE COLOR Yellow (YELLOW); URINE GLUCOSE Negative (NEGATIVE); URINE KETONE Negative (NEGATIVE); URINE LEUKOCYTE ESTERASE 2+ (NEGATIVE); URINE NITRATE Negative (NEGATIVE); URINE PROTEIN(semi-quant) 1+ (NEGATIVE); URINE RBC >50 /hpf (0-2); URINE UROBILINOGEN Negative (NEGATIVE)
[2021-10-12 19:46] LABS: ARTERIAL BLD GAS O2 SATURATION 99.1 % (92-100); ARTERIAL BLD GAS TCO2 CT 38.4; ARTERIAL BLOOD GAS BASE EXCESS 4.9 (-2-2); ARTERIAL BLOOD GAS HCO3 35.5 meq/L (22-26)
[2021-10-12 19:47] LABS: ARTERIAL BLOOD GAS PCO2 93.2 mmHg (35-45); ARTERIAL BLOOD GAS PO2 161.2 mmHg (80-100)
[2021-10-13] VITALS (593 sets, daily range): BP systolic 98–122; BP diastolic 62–89; PULSE 90–122; TEMP 97.3–98.4; O2SAT 90–100
--- NOTE | 2021-10-13 01:06 | NUR ---
cardizem drip restarted per titration parameters
[2021-10-13 04:09] LABS: HEMOGLOBIN 10.2 g/dl (12.5-16.0); MEAN CELL VOLUME 98 fl (80.0-100.0); MEAN CORPUSCULAR HEMOGLOBIN 30 pg (27-31); MEAN CORPUSCULAR HGB CONC 30 g/dl (33.0-37.0); MEAN PLATELET VOLUME 9.7 fl (7.4-10.4); PLATELET COUNT 289 K/mm3 (130-400); RED BLOOD COUNT 3.43 M/mm3 (4.10-5.30); REDCELL DISTRIBUTION WIDTH-CV 17.2 % (11.5-14.5)
[2021-10-13 04:16] LABS: HEMATOCRIT 33.6 % (37.0-47.0)
[2021-10-13 04:19] LABS: CALCIUM 8.4 mg/dL (8.4-10.2); CREATININE, serum 0.86 mg/dL (0.57-1.11); POTASSIUM 4.2 mmol/L (3.5-4.5)
[2021-10-13 04:34] LABS: BAND 11 % (0-10); LYMPHOCYTE 6 % (20.0-51.0); NEUTROPHILS 82 % (42.0-75.2)
[2021-10-13 04:35] LABS: ANISOCYTOSIS 1+
[2021-10-13 04:36] LABS: HYPOCHROMIA 1+; PLATELET ESTIMATE NORMAL (NORMAL)
--- NOTE | 2021-10-13 05:29 | NUR ---
Patient taken off nipride and nitroglycerin drips overnight per discontinued order by MD. Increasing O2 need throughout shift. 6L--15L--bipap. No other changes from previously documented assessment. All safety measures maintained. Will continue to monitor
--- NOTE | 2021-10-13 05:31 | NUR ---
No changes from previously documented assessment. Patient neuro exam flucuating-- either obtunded or agitated/combative requiring IV ativan. Patient remains on bipap and cardizem drip. All safety measures maintained. Will continue to monitor
[2021-10-13 06:15] LABS: ARTERIAL BLD GAS O2 SATURATION 95.4 % (92-100); ARTERIAL BLD GAS TCO2 CT 37.7; ARTERIAL BLOOD GAS BASE EXCESS 6.8 (-2-2); ARTERIAL BLOOD GAS HCO3 35.5 meq/L (22-26); ARTERIAL BLOOD GAS PO2 81.8 mmHg (80-100); ARTERIAL BLOOD GAS pH 7.29 (7.35-7.45)
[2021-10-13 06:16] LABS: ARTERIAL BLOOD GAS PCO2 74.9 mmHg (35-45)
--- NOTE | 2021-10-13 08:42 | NUR ---
PT IS LYING IN BED WITH EYES CLOSED. DURING ASSESSMENT PATIENT OPENS EYES AND MOVES HAND VERY QUICKLY TOWARDS NURSE. PT ATTEMPTS TO GRAB THIS RNs hand. PT RELAXES WITH CALMING TECHNIQUES AND QUICKLY FALLS BACK ASLEEP. WHILE FEELING PTS PULSES SHE AGAIN BECOMES AGGRIVATED BUT WHEN DONE PATEINT CLOSES EYES AGAIN. PT DOES NOT FOLLOW COMMANDS. PO MEDS WILL NOT BE GIVEN AT THIS TIME DUE TO PATIENT NOT BEING ALERT.
--- NOTE | 2021-10-13 16:10 | NUR ---
PT is increasingly agitated, attempting to throw legs out of bed, remove bipap and swing at RNs. Dr. Bravo notified. Order for precedex given , see emar. Dr. Meneses notified and approved of use of precedex.
--- NOTE | 2021-10-13 22:10 | NUR ---
PATIENT CONTINUES WITH AGGITATION WITH ANY INTERVENTION EVEN WITH EXPLANATION OF ACTION PRIOR TO INTERVENTION ATTEMPTING TO HIT AND KICK STAFF AND PULL ESSENTIAL EQUIPMENT OFF INCLUDING BIPAP AND IV LINE, PRECEDEX DRIP TITRATED TO MAX DRIP STATUS AT THIS TIME WILL CONTINUE TO MONITOR FOR NEED OF ANY ADDITIONAL INTERVENTIONS
--- NOTE | 2021-10-13 22:56 | NUR ---
Patient HR noted to be variable between 90's to low 100's maintianing in low 100's for short periods of time only then returns to 90's will continue to monitor and restart cardizem as ordered if continues
--- NOTE | 2021-10-13 23:15 | NUR ---
PATIENT HEART RATE CONTINUES WITH FREQUENT FLUCTUATIONS INTO LOW 100'S RESTARTED CARDIZEM DRIP AT THIS TIME
[2021-10-14] VITALS (561 sets, daily range): BP systolic 100–153; BP diastolic 66–96; PULSE 79–129; TEMP 96.7–98.5; O2SAT 63–100
[2021-10-14 04:35] LABS: ARTERIAL BLD GAS O2 SATURATION 93.3 % (92-100); ARTERIAL BLD GAS TCO2 CT 35.2; ARTERIAL BLOOD GAS BASE EXCESS 9.6 (-2-2); ARTERIAL BLOOD GAS HCO3 33.8 meq/L (22-26); ARTERIAL BLOOD GAS PCO2 44.7 mmHg (35-45); ARTERIAL BLOOD GAS PO2 67.2 mmHg (80-100)
--- NOTE | 2021-10-14 05:30 | NUR ---
Patient became aggitated when changing sheets, attempting to pull off bipap mask, sat with patient speaking in calm voice and patient eventually bacame calm, also discussed with respiratory therapy switching to either nasal cannula or oxy mask since patient CO2 level is better this am, in agreement and placed patient on oxymask, also noted that patient heart rate in 70's and 80's consistently placed cardizem on hold and began titration of precedex down
--- NOTE | 2021-10-14 05:40 | NUR ---
CARDIZEM DRIP STOPPED AT THIS TIME
--- NOTE | 2021-10-14 06:22 | NUR ---
PRECEDEX DRIP PLACED ON STANDBY AT THIS TIME, PATIENT HAS BEEN CALM AND RESTING EVEN DURING MORNING LAB DRAW AWAKENS TO PHYSICAL STIMULI, HEART RATE IN HIGH 80'S MAINTAINING OXYGEN SATURATIONS IN MID 90'S ON 10LPM VIA OXYMASK WILL CONTINUE TO MONITOR
[2021-10-14 06:26] LABS: BASO % 0.1 % (0.0-2.0); GRAN # 6.6 K/mm3 (1.4-6.5); HEMOGLOBIN 10.5 g/dl (12.5-16.0); LYMPH # 0.6 K/mm3 (1.2-3.4); LYMPH % 7.4 % (20.0-51.0); MEAN CORPUSCULAR HEMOGLOBIN 30 pg (27-31); MEAN CORPUSCULAR HGB CONC 32 g/dl (33.0-37.0); MEAN PLATELET VOLUME 9.6 fl (7.4-10.4); MONO # 0.2 K/mm3 (0.1-0.6); MONO % 2.7 % (1.7-9.3); PLATELET COUNT 311 K/mm3 (130-400); RED BLOOD COUNT 3.55 M/mm3 (4.10-5.30); REDCELL DISTRIBUTION WIDTH-CV 16.8 % (11.5-14.5)
[2021-10-14 06:29] LABS: HEMATOCRIT 32.9 % (37.0-47.0); MEAN CELL VOLUME 93 fl (80.0-100.0)
[2021-10-14 06:40] LABS: CALCIUM 9.1 mg/dL (8.4-10.2); CREATININE, serum 1.09 mg/dL (0.57-1.11); MAGNESIUM 1.9 mg/dL (1.6-2.6); POTASSIUM 3.3 mmol/L (3.5-4.5)
--- NOTE | 2021-10-14 07:15 | NUR ---
RN REQUESTED PT NOT BE DISTURBED
--- NOTE | 2021-10-14 07:17 | NUR ---
patient awake and aggitated removing oxymask, blood pressure cuff and pulse ox, attempting to pinch this nurse and remove gown, screaming and yelling, restarted precedex per orders
--- NOTE | 2021-10-14 14:07 | NUR ---
PT TO CT AT 1315 VIA BED AND BACK AT 1334 WITHOUT INCIDENT.
--- NOTE | 2021-10-14 15:24 | NUR ---
SW called patient's daughter Shital Cortes [phone] to assist with intake due to SW being informed by nurse that patient would not be able to complete intake with SW. Daughter stated that she and her sister are guardians/power of attorneys for patient. Daughter Meggan Oneill [phone]. Daughter stated that patient lives in [place] but was previously at [facility] for rehab. Before going to rehab in her home she obtained services from [facility] 3 times per week. PCP is Dr. Stevens and pharmacy is [facility]. Daughter provided unsure at this time what the DC plan will be due to current care needed. SW will continue to follow. DC plan: unknown
--- NOTE | 2021-10-14 17:32 | NUR ---
PT HAD MANY EPISODES OF AGITATION THROUGHOUT THE DAY. PRN MEDICATIONS GIVEN ORDERED. PT HAS BEEN AFEBRILE. REMAINS OFF CARDIZEM HR REMAINS AROUND 100 BPM AND BELOW WITH AFIB. PRECDEX DRIP RATE IS UNCHANGED. PT IS DOWN TO 8 LPM ON AN OXYMASK MAINTAINING SPO2 OF 96%. NEICE/DPOA CHRISTINA UPDATED AND WILL BE IN AGAIN TOMORROW. PT APPEARS TO BE RESTING COMFORTABLY AT THIS MOMENT. SURGERY CALLED FOR CENTRAL LINE PLACEMENT DR. AUGUSTINE WOULD LIKE TO START NUTRITON TOMORROW.
--- NOTE | 2021-10-14 19:46 | NUR ---
Discussed with ANDRY Mendez patient's am potassium level with no replacement and noted continued to receive lasix iv pushes, new orders recieved for labs at this time.
[2021-10-14 20:47] LABS: CALCIUM 8.8 mg/dL (8.4-10.2); CREATININE, serum 1.08 mg/dL (0.57-1.11); MAGNESIUM 2.2 mg/dL (1.6-2.6); POTASSIUM 3.9 mmol/L (3.5-4.5)
[2021-10-15] VITALS (584 sets, daily range): BP systolic 93–113; BP diastolic 60–79; PULSE 94–111; TEMP 98.2–99; O2SAT 74–100
[2021-10-15 05:47] LABS: BASO % 0.1 % (0.0-2.0); GRAN # 7.8 K/mm3 (1.4-6.5); GRAN % 88.3 % (42.2-75.2); LYMPH # 0.6 K/mm3 (1.2-3.4); LYMPH % 6.4 % (20.0-51.0); MEAN CELL VOLUME 96 fl (80.0-100.0); MEAN CORPUSCULAR HEMOGLOBIN 29 pg (27-31); MEAN CORPUSCULAR HGB CONC 31 g/dl (33.0-37.0); MEAN PLATELET VOLUME 9.5 fl (7.4-10.4); MONO # 0.4 K/mm3 (0.1-0.6); MONO % 4.6 % (1.7-9.3); PLATELET COUNT 288 K/mm3 (130-400); RED BLOOD COUNT 3.75 M/mm3 (4.10-5.30)
[2021-10-15 05:48] LABS: HEMATOCRIT 35.8 % (37.0-47.0)
--- NOTE | 2021-10-15 06:00 | NUR ---
Patient at times has been intermittently combative, including pinching and hitting at staff. Patient is able to follow commands at times and can speak meaningful words and requests, such as to ask for water, and to state that she has to pee, appears to understand when told that she needs to leave her mask on and that her niece Shital will be her in a couple of hours, suggested that patient get some rest. Patient frequently cries out but is often unable to state what her need is, often while awake is pulling items off including pulse ox, blood pressure cuff, bipap mask. Patient cries for awhile, being aggitated and combative and then without any intervention will fall asleep. Extended periods of time spent with patient one on one speaking calmly and soothing patient as much as possible without additional pharmacological intervention.
[2021-10-15 06:01] LABS: CALCIUM 9.1 mg/dL (8.4-10.2); CREATININE, serum 1.09 mg/dL (0.57-1.11); MAGNESIUM 2.1 mg/dL (1.6-2.6); POTASSIUM 3.4 mmol/L (3.5-4.5)
--- NOTE | 2021-10-15 07:45 | NUR ---
PT AGITATED THIS AM. ATTEMPTING TO SCRATCH, BITE AND HIT NURSING STAFF. ATIVAN GIVEN ORDERD AND PRECEDEX DRIP TITRATED APPROPRIATELY. 0736- CENTRAL LINE PLACED BY DR. BERHANE CHAPARRO INCIDENT. PT REMAINED CALM FOR THIS PROCEDURE.
[2021-10-15 08:15] LABS: ARTERIAL BLD GAS O2 SATURATION 96.1 % (92-100); ARTERIAL BLD GAS TCO2 CT 45.4; ARTERIAL BLOOD GAS BASE EXCESS 14.4 (-2-2); ARTERIAL BLOOD GAS PO2 87.6 mmHg (80-100); ARTERIAL BLOOD GAS pH 7.36 (7.35-7.45)
[2021-10-15 08:16] LABS: ARTERIAL BLOOD GAS PCO2 78.1 mmHg (35-45)
[2021-10-15 09:33] LABS: PHOSPHOROUS 3.2 mg/dL (2.3-4.7)
--- NOTE | 2021-10-15 10:01 | NUR ---
DURING REPOSITIONING, ORAL AND CATHETER CARE PATEINT BECOMES AGGRESSIVE AND STARTS TO KICK AND SWING AT NURSE. CALMING TECHNIQUES UNSUCCESSFUL. HALDOL GIVEN ORDERED. PLEASE SEE EMAR.
--- NOTE | 2021-10-15 10:21 | NUR ---
flume worker contacted Hussein at [facility] [place] and confirmed that patient is currently receiving mcfp services at their facility and can accept patient back when stable.
--- NOTE | 2021-10-15 10:56 | NUR ---
micha Isaacs/dhiraj bedside, updated.
[2021-10-15 17:48] LABS: CALCIUM 8.4 mg/dL (8.4-10.2); CREATININE, serum 1.02 mg/dL (0.57-1.11); POTASSIUM 4.1 mmol/L (3.5-4.5)
[2021-10-16] VITALS (312 sets, daily range): BP systolic 84–146; BP diastolic 56–101; PULSE 79–102; TEMP 87.7–98.8; O2SAT 67–100
--- NOTE | 2021-10-16 00:30 | NUR ---
PATIENT AGGITATED AND BEING TURNED AND POSITIONED THEN BEGAN TO PULL OFF BIPAP MASK UNABLE TO BE SOOTHED PRN MEDICAATIONS INEFFECTIVE INCREASE IN PRECEDEX AT THIS TIME, INTERVENTION BY STAFF TO KEEP PATIENT FROM HARMING HERSELF
--- NOTE | 2021-10-16 03:30 | NUR ---
PATIENT AGTITATED AND PULLING OFF BIPAP, PINCHING THIS NURSE WHEN ATTEMPTING TO REPLACE BIPAP MASK INCREASED PRECEDEX DRIP PER ORDERS
[2021-10-16 04:45] LABS: CALCIUM 8.7 mg/dL (8.4-10.2); CREATININE, serum 0.94 mg/dL (0.57-1.11); MAGNESIUM 2.4 mg/dL (1.6-2.6); PHOSPHOROUS 2.6 mg/dL (2.3-4.7); POTASSIUM 3.7 mmol/L (3.5-4.5)
[2021-10-16 05:54] LABS: ARTERIAL BLD GAS TCO2 CT 41.1; ARTERIAL BLOOD GAS BASE EXCESS 11.6 (-2-2); ARTERIAL BLOOD GAS PO2 112.7 mmHg (80-100); ARTERIAL BLOOD GAS pH 7.39 (7.35-7.45)
[2021-10-16 05:55] LABS: ARTERIAL BLOOD GAS PCO2 66.7 mmHg (35-45)
--- NOTE | 2021-10-16 08:00 | NUR ---
THIS NURSE SPOKE WITH PT'S MELISSA/TOMAS VASQUEZ. CHRISTINA UPDATED ON PT'S CURRENT CONDITION. LET HER KNOW THAT PLAN IS TO CALL [facility] TODAY TO SEE IF THEY ARE ABLE TO ACCEPT PT FOR TAVR. CHRISTINA REQUESTS THAT IF THEY ARE UNABLE TO ACCEPT PT, THEN SHE WOULD LIKE US TO ATTEMPT TO GET PT ACCEPTED ELSEWHERE FOR PROCEDURE. THIS NURSE LET CHRISTINA KNOW THAT I WOULD PASS THIS ON TO HOSPITALIST AND CARDIOLOGY.
[2021-10-16 14:46] LABS: CALCIUM 8.6 mg/dL (8.4-10.2); CREATININE, serum 0.86 mg/dL (0.57-1.11); POTASSIUM 4.4 mmol/L (3.5-4.5)
--- NOTE | 2021-10-16 17:34 | NUR ---
THIS NURSE SPOKE WITH PT DPOA JUAN MANUEL. EXPLAINED TO JUAN MANUEL THAT [facility] HAS ACCEPTED PT, BUT WOULD LIKE HER TO BE A FULL CODE AND ALLOW INTUBATION PRIOR TO BEING TRANSFERED. JUAN MANUEL TOOK TIME TO SPEAK WITH OTHER DPOA CHRISTINA, AND THEY ARE BOTH OKAY WITH THIS BEING DONE. WILL PLAN FOR TRANSFER TO [facility].
--- NOTE | 2021-10-16 19:20 | NUR ---
Patient intubated by pediatric associate 7.5 ett/ 24 at teeth, positive breath sounds bilaterally and positive color change at this time. Medications given by pediatric associate 16mg of etomidate, 100mg of succinylcholine and 0.1mg of phenylephrine
--- NOTE | 2021-10-16 20:00 | NUR ---
OG placed at 60cm at teeth verified with air bolus and auscultation and confirmed with xray. Sputum sample obtained and sent to lab
--- NOTE | 2021-10-16 20:42 | NUR ---
INTUBATED PER ANSETHESIA NO COMPLICATIONS PLACED ON VENT PER CHARTED SETTINGS
--- NOTE | 2021-10-16 20:47 | NUR ---
TRANSPORT TEAM IN ROOM SETTING UP THEIR VENT.
--- NOTE | 2021-10-16 21:26 | NUR ---
2057 Patient noted to be awakening but with increase of sedation became hypotensive notified ANDRY Mendez and order given for Levophed, initiated and titrated to normotensive pressure with adequate sedation attained patient then transferred to EMS cot with 4 assist and left for [facility]
--- NOTE | 2021-10-16 21:45 | NUR ---
Notifed Shital after being unable to get a hold of Vika that patient had left for [facility]
== END 2021-10-16 21:26 | disposition short-term general hospital (02) | DRG 208 ==
LOC: COL.ER 16:22 → ICU 18:01
PROVIDERS: Emergency Medicine; Internal Medicine; Physician Assistant; Student in an Organized Health Care Education/Training Program; ADMIT Internal Medicine Pulmonary Disease
PROC: 05HY33Z Insertion of Infusion Device into Upper Vein, Percutaneous Approach (ICD-10-PCS; principal; 2021-10-12)
PROC: 5A09357 Assistance with Respiratory Ventilation, Less than 24 Consecutive Hours, Continuous Positive Airway Pressure (ICD-10-PCS; 2021-10-13)
PROC: 05HY33Z Insertion of Infusion Device into Upper Vein, Percutaneous Approach (ICD-10-PCS; 2021-10-15)
PROC: 5A1935Z Respiratory Ventilation, Less than 24 Consecutive Hours (ICD-10-PCS; 2021-10-16)
PROC: 0BH17EZ Insertion of Endotracheal Airway into Trachea, Via Natural or Artificial Opening (ICD-10-PCS; 2021-10-16)
DX: J96.21 Acute and chronic respiratory failure with hypoxia (principal); I50.33 Acute on chronic diastolic (congestive) heart failure; J18.9 Pneumonia, unspecified organism; G93.41 Metabolic encephalopathy; N39.0 Urinary tract infection, site not specified; I48.20 Chronic atrial fibrillation, unspecified; J44.1 Chronic obstructive pulmonary disease with (acute) exacerbation; J44.0 Chronic obstructive pulmonary disease with (acute) lower respiratory infection; E87.0 Hyperosmolality and hypernatremia; E87.3 Alkalosis; N17.9 Acute kidney failure, unspecified; I11.0 Hypertensive heart disease with heart failure; J96.22 Acute and chronic respiratory failure with hypercapnia; K59.09 Other constipation; K21.9 Gastro-esophageal reflux disease without esophagitis; I35.0 Nonrheumatic aortic (valve) stenosis; E78.5 Hyperlipidemia, unspecified; E11.9 Type 2 diabetes mellitus without complications; I27.20 Pulmonary hypertension, unspecified; B96.5 Pseudomonas (aeruginosa) (mallei) (pseudomallei) as the cause of diseases classified elsewhere; I48.0 Paroxysmal atrial fibrillation; E87.6 Hypokalemia; Z87.891 Personal history of nicotine dependence; Z79.84 Long term (current) use of oral hypoglycemic drugs
CPT/HCPCS: 99233-AI; A4217; C1751; C1892; C9113; J0330; J0610; J0696; J1160; J1630; J1650; J1815; J1940; J2060; J2370; J2543; J2704; J2920; J3010; J3411; J3475; J3480; J7030; J7060

== ENCOUNTER → 2021-11-29 | Outpatient (CLI) | payer MEDICARE, MEDICAID | LOC: ZCOL.LAB 16:23 | DX: Z01.89 Encounter for other specified special examinations (principal) ==